=== PATIENT | female | born 1955 | race Caucasian/White ===

== ENCOUNTER 2018-02-03 02:58 | Inpatient (IN) | payer OTHER ==
--- NOTE | 2018-02-03 03:06 | C.PDOC ---
History Of Present Illness 62 year old female presents to the ER with a complaint of upper abdominal pain that began this morning when she woke up. Patient states the pain is nonradiating and not associated with chest pain, SOB, nausea, vomiting, diarrhea , dysuria, fever. She admits to having had mild similar pain in the past, but today the pain was much stronger. PMHx of HTN, arthritis,migraines Time Seen by Provider: 02/03/18 02:59 Chief Complaint (Nursing): Abdominal Pain History Per: Patient History/Exam Limitations: no limitations Onset/Duration Of Symptoms: Hrs Current Symptoms Are (Timing): Still Present Severity: Moderate Location Of Pain/Discomfort: RUQ, Epigastric Radiation Of Pain To:: None Quality Of Discomfort: "Pain" Associated Symptoms: denies: Fever, Chills, Nausea, Vomiting, Diarrhea, Urinary Symptoms Exacerbating Factors: None Alleviating Factors: None Recent travel outside of the [place]: No Abnormal Vaginal Bleeding: No Past Medical History Reviewed: Historical Data, Nursing Documentation, Vital Signs Vital Signs: Last Vital Signs Temp 98 F 02/03/18 03:02 Pulse 76 02/03/18 03:02 Resp 22 02/03/18 03:02 BP 158/94 H 02/03/18 03:02 Pulse Ox 99 02/03/18 06:54 - Medical History PMH: Arthritis, HTN, Migraine Family History: States: No Known Family Hx - Social History Hx Tobacco Use: No Hx Alcohol Use: No Hx Substance Use: No - Immunization History Hx Tetanus Toxoid Vaccination: Yes Hx Influenza Vaccination: Yes Hx Pneumococcal Vaccination: Yes Review Of Systems Constitutional: Negative for: Fever, Chills Cardiovascular: Negative for: Chest Pain, Palpitations Respiratory: Negative for: Shortness of Breath Gastrointestinal: Positive for: Abdominal Pain. Negative for: Nausea, Vomiting , Diarrhea Genitourinary: Negative for: Dysuria, Hematuria Physical Exam - Physical Exam Appears: Well, Non-toxic, Other (in moderate pain) Skin: Normal Color, Warm, Dry Head: Normacephalic Eye(s): bilateral: Normal Inspection Oral Mucosa: Moist Neck: Normal, Supple Cardiovascular: Rhythm Regular Respiratory: Normal Breath Sounds, No Rales, No Rhonchi, No Wheezing Gastrointestinal/Abdominal: Bowel Sounds, Soft, Tenderness ((+) Novak's, (+) Epigastric and RUQ TTP, (-) McBurney's), No Guarding, No Rebound Back: No CVA Tenderness Neurological/Psych: Oriented x3 ED Course And Treatment - Laboratory Results Result Diagrams: 02/03/18 04:16 02/03/18 04:16 O2 Sat by Pulse Oximetry: 99 (RA) Pulse Ox Interpretation: Normal - CT Scan/US ABD US Other Rad Studies (CT/US): Read By Radiologist, Radiology Report Reviewed CT/US Interpretation: Name: LAY CLARKE Age: 62Years F Date: 02/03/2018. Requesting Physician: GLORIA SAMS : 1955. [facility] Procedure Ordered As Accession Number of Images. US ABDOMEN LTD US ABDOMEN LIMITED [id number]. Provided Clinical History: ruq abd pain, r/o cholecystitis. EXAM: US Abdomen Limited, Right Upper Quadrant. CLINICAL HISTORY: 62 years old, female; Pain; Abdominal pain; Additional info: Ruq abd pain, R/O cholecystitis. TECHNIQUE: Real-time ultrasound of the right upper quadrant with image documentation. COMPARISON: No relevant prior studies available. FINDINGS: Artifacts: Limited due to bowel gas shadowing. Limited due to patient's body habitus and pain. Limited due to shadowing from the ribs. Liver: Limited evaluation of liver due to shadowing. Gallbladder: There is 1.7 x 1.1 x 1.6 cm gallstone in the gallbladder neck with 3 mm gallbladder wall. suspicious for acute obstructive cholecystitis is clinically suspected.There was right upper quadrant. tenderness during the sonographic examination. Common bile duct: Normal common bile duct measuring 6 mm for patient's age. No stones. No. dilation. Pancreas: The pancreas is not well- seen. Echogenic pancreas. Right kidney: Unremarkable. No stones. No solid mass. No hydronephrosis. Aorta: The visualized portions of the aorta appears unremarkable. Inferior vena cava: IVC seen. IMPRESSION: 1. There is 1.7 x 1.1 x 1.6 cm gallstone in the gallbladder neck with 3 mm gallbladder wall. suspicious for acute obstructive cholecystitis is clinically suspected.There was right upper. quadrant tenderness during the sonographic examination. 2. Normal common bile duct measuring 6 mm for patient's age. Thank you for allowing us to participate in the care of your patient. Dictated and Authenticated by: Alyec Burrell MD Progress Note: Blood work, UA, US of RUQ ordered. Patient given IV NS bolus, IV morphine. 6:35am- compensation vice president paged to discuss patient with acute cholcystitis. Surgical consult Dr. Noguera entered. Patient currently resting more comfortably, pain has improved. 6:45am- compensation vice president paged again, pending call back. 6:56am- Surgery resident spoken with, they will come down and evaluate patient. Reevaluation Time: 05:30 Reassessment Condition: Unchanged (Patient c/o severe pain again, IV morphine ordered.) Disposition - Disposition Disposition Time: 07:00 Condition: STABLE Forms: [facility] ([place]ian) - Clinical Impression Clinical Impression: Acute cholecystitis - Scribe Statement The provider has reviewed the documentation as recorded by the Scribe Miguel Sinha All medical record entries made by the Scribe were at my direction and personally dictated by me. I have reviewed the chart and agree that the record accurately reflects my personal performance of the history, physical exam, medical decision making, and the department course for this patient. I have also personally directed, reviewed, and agree with the discharge instructions and disposition. Physician Patient Turnover Patient Signed Over To: Caitlin Martin Handoff Comments: evaluation by general surgery
[2018-02-03] MEDS ORDERED: Sodium Chloride 0.9% 1,000 ML IV ONE (03:21)
[2018-02-03] MEDS ORDERED: Morphine 4 MG/ML VIAL ONE ×2 (03:46→05:39)
[2018-02-03] MEDS ORDERED: Sodium Chloride 0.9% 1,000 ML ONE (03:46)
[2018-02-03 04:22] LABS: BASO # 0.2 K/uL (0.0-0.2); BASO % 2.5 % (0.0-2.0); EOS # 0.1 K/uL (0.0-0.7); EOS % 1.1 % (0.0-4.0); HEMOGLOBIN 13.5 g/dL (11.0-16.0); MEAN CELL VOLUME 85.4 fL (81.0-99.0); MEAN CORPUSCULAR HEMOGLOBIN 27.7 pg (27.0-31.0); MEAN CORPUSCULAR HGB CONC 32.4 g/dL (33.0-37.0); MEAN PLATELET VOLUME 10.5 fL (7.2-11.7); MONO # 0.3 K/uL (0.0-0.8); MONO % 4.4 % (0.0-10.0); NEUT # 6.2 K/uL (1.8-7.0); RBC 4.87 Mil/uL (3.80-5.20); RED CELL DISTRIBUTION WIDTH 14.8 % (11.5-14.5); WHITE BLOOD COUNT 7.9 K/uL (4.8-10.8)
[2018-02-03 04:44] LABS: ALB/GLOB RATIO 1.4 (1.0-2.1); ALBUMIN 4.3 g/dL (3.5-5.0); ALT/SGPT 23 U/L (9-52); AST/SGOT 21 U/L (14-36); BLOOD UREA NITROGEN 15 mg/dL (7-17); CALCIUM 9.4 mg/dl (8.6-10.4); GFR AFRICAN-AMERICAN > 60; GFR NON-AFRICAN AMERICAN > 60; LIPASE 192 U/L (23-300)
[2018-02-03] MEDS ORDERED: Piperacillin/Tazobact 3.375 gm 100 ML IV STA (06:59)
[2018-02-03 08:21] LABS: SQUAMOUS EPITHIAL < 1 /hpf (0-5); URINE BILIRUBIN NEGATIVE (NEGATIVE); URINE CLARITY Clear (Clear); URINE COLOR Yellow (YELLOW); URINE GLUCOSE (UA) NORMAL (Normal); URINE LEUKOCYTE ESTERASE TRACE Leu/uL (Negative); URINE PROTEIN NEGATIVE (NEGATIVE); URINE UROBILINOGEN NORMAL mg/dL (0.2-1.0)
[2018-02-03 08:22] LABS: URINE BLOOD TRACE (NEGATIVE)
--- NOTE | 2018-02-03 09:44 | CP.PCM.HP ---
<Rosenda Mo - Last Filed: 02/03/18 15:59> History of Present Illness - History of Present Illness History of Present Illness: History and Physical - Hospitalist Service CC: "Abdominal Pain" HPI: Patient is a 62 year old female with past medical history Hypertension, sleep apnea on CPAP at night, obesity presented to the ED for severe abdominal pain. Patient's daughter is at the bedside providing some of the history. Patient states that she has been having intermittent abdominal pain that started 2-3 weeks ago. Last night after dinner she started experiencing severe abdominal pain in the RUQ. Pain started at approximately 8-9pm and is constant in nature. She took tylenol with no relief in symptoms. For dinner, she ate rice with baked chicken at approximately 7:30pm last night. Patient still with abdominal pain at the time of interview. Denies fevers, chills, headaches, dizziness, cp, palpitations, sob, urinary symptoms, changes in bowel habits. Patient follows closely with her machine burrer. States that her last echo and stress test were in September 2017, which were normal. Patient last took her medications yesterday. ED Course: Morphine 4mg IVP x 2 doses, Zosyn 3.375mg IVPB x 1, NS bolus x 1 PMD: Dr Fernanedz Cardiology: Dr Tha Benito Allergies: Penicillin - anaphylaxis Medications: Lisinopril-HCTZ 20mg/25mg PO daily, ASA 81mg PO daily Medical History: Hypertension, Varicose Veins, Obesity Surgical History: C section x 2, Broncoscopy in 2009 for chicken bone removal Social History: Denies tobacco, alcohol, drug use; lives with her ; independent with ADLs Family History: Non-contributory Present on Admission - Present on Admission Any Indicators Present on Admission: No Past Patient History - Past Social History Smoking Status: Never Smoked - CARDIAC Hx Hypertension: Yes - NEUROLOGICAL Hx Migraine: Yes - MUSCULOSKELETAL/RHEUMATOLOGICAL Hx Arthritis: Yes - PSYCHIATRIC Hx Substance Use: No - SURGICAL HISTORY Hx Section: Yes Meds Allergies/Adverse Reactions: Allergies Allergy/AdvReac Type Severity Reaction Status Date / Time Penicillins Allergy ANAPHYLAXIS Verified 02/03/18 10:31 Physical Exam - Constitutional Appears: Well, Non-toxic, No Acute Distress - Head Exam Head Exam: ATRAUMATIC, NORMAL INSPECTION, NORMOCEPHALIC - Eye Exam Eye Exam: EOMI, Normal appearance Pupil Exam: NORMAL ACCOMODATION - ENT Exam ENT Exam: Mucous Membranes Moist - Neck Exam Neck exam: Positive for: Full Rom - Respiratory Exam Respiratory Exam: Clear to Auscultation Bilateral, NORMAL BREATHING PATTERN. absent: Rales, Rhonchi, Wheezes - Cardiovascular Exam Cardiovascular Exam: REGULAR RHYTHM, +S1, +S2 - GI/Abdominal Exam GI & Abdominal Exam: Normal Bowel Sounds, Soft, Tenderness. absent: Guarding, Rebound, Rigid Additional comments: +Novak's on exam - Rectal Exam Rectal Exam: Deferred - Extremities Exam Extremities exam: Positive for: full ROM, normal capillary refill, pedal pulses present. Negative for: calf tenderness, pedal edema Additional comments: +varicose veins, +pedal pulses bilaterally, no calf tenderness, +varicose veins - Back Exam Back exam: NORMAL INSPECTION - Neurological Exam Neurological exam: Alert, CN II-XII Intact, Oriented x3 - Psychiatric Exam Psychiatric exam: Normal Affect, Normal Mood - Skin Skin Exam: Dry, Normal Color, Warm Results - Vital Signs Recent Vital Signs: Last Vital Signs Temp 98.9 F 02/03/18 07:00 Pulse 78 02/03/18 07:00 Resp 18 02/03/18 07:00 BP 141/69 02/03/18 07:00 Pulse Ox 97 02/03/18 07:00 - Labs Result Diagrams: 02/03/18 04:16 02/03/18 04:16 Labs: Laboratory Results - last 24 hr 02/03/18 02/03/18 02/03/18 04:16 04:16 07:48 WBC 7.9 RBC 4.87 Hgb 13.5 Hct 41.6 MCV 85.4 D MCH 27.7 MCHC 32.4 L RDW 14.8 H Plt Count 162 MPV 10.5 Neut % (Auto) 79.0 H Lymph % (Auto) 13.0 L [place] % (Auto) 4.4 Eos % (Auto) 1.1 Baso % (Auto) 2.5 H Neut # (Auto) 6.2 Lymph # (Auto) 1.0 [place] # (Auto) 0.3 Eos # (Auto) 0.1 Baso # (Auto) 0.2 Sodium 139 Potassium 3.9 Chloride 100 Carbon Dioxide 26 Anion Gap 17 BUN 15 Creatinine 0.9 Est GFR ( Amer) > 60 Est GFR (Non-Af Amer) > 60 Random Glucose 125 H Calcium 9.4 Total Bilirubin 0.6 AST 21 ALT 23 Alkaline Phosphatase 109 Total Protein 7.3 Albumin 4.3 Globulin 3.0 Albumin/Globulin Ratio 1.4 Lipase 192 Urine Color Yellow Urine Clarity Clear Urine pH 5.0 Ur Specific [place] 1.021 Urine Protein Negative Urine Glucose (UA) Normal Urine Ketones Negative Urine Blood Trace Urine Nitrate Negative Urine Bilirubin Negative Urine Urobilinogen Normal Ur Leukocyte Esterase Trace Urine WBC (Auto) 4 Urine RBC (Auto) < 1 Ur Squamous Epith Cells < 1 Assessment & Plan - Assessment and Plan (Free Text) Assessment: A/P: Patient is a 62 year old female with past medical history of Hypertension, Sleep apnea, Obesity who presented to the ED for severe RUQ pain that started last night. Abdominal pain secondary to Acute Cholecystitis -Stable, afebrile -Will admit inpatient -Abdominal US showed there is 1.7 x 1.1 x 1.6 cm gallstone in the gallbladder neck with 3 mm gallbladder wall, suspicious for acute obstructive cholecystitis , there was right upper quadrant tenderness during the sonographic examination, Normal common bile duct measuring 6mm for patient's age -Antibiotics: Ciprofloxacin 400mg Q12H, Flagyl 500mg Q8H -Patient reports having Penicillin allergy after receiving Zosyn in the ED, Benadryl 25mg IVP, Solumedrol 40mg IVP and Pepcid 20mg IVP ordered -General surgery on consult, help appreciated -Patient had echo and stress test in September 2017 that was reportedly normal per the daughter -Dr Benito office is closed today, unable to access reports -Repeat Echo ordered -Started Lactated ringers @ 80cc/hr -Zofran 4mg Q6H IVP prn nausea, Morphine 2mg Q4H prn pain -CXR: poor inspiratory effort, mild venous congestion, right hilar prominence, tortuous ectatic aorta (see full report) -Repeat CXR showed Mild venous congestion, mild pathcy increased markings at lung bases, right hilar prominence, tortuous ectatic aorta, mild cardiomegaly ( see full report) -EKG showing NSR 62 bpm, no ST changes -Patient is a medium risk individual with her comoborbities; cardiac risk index for non-cardiac surgery is Class I 6% (Detsky score) and estimated risk probability for perioperative myocardial infarction or cardiac arrest is 0.13% ( Sanchez score) Hypertension -Patient states that she is complaint with her medications and her BPs are controlled -Takes Lisinopril/HCTZ 20-25mg PO daily -Will hold Aspirin 81mg PO daily at this time, can resume 3-4 days post op -Currently normatensive, will continue to monitor vital signs Sleep apnea/Obesity -Patient has had two sleep studies done in the past -Sleeps with CPAP at night, daughter to provide settings -Duonebs Q6H prn shortness of breath -Will obtain baseline ABG -BMI 46.9 GI/DVT ppx: -Pepcid 20mg IVP daily -SCDs (Will add chemical VTE after surgery) Plan discussed with Dr Mary Carmen Mo DO PGY-2 <Mary Carmen Lucia V - Last Filed: 02/03/18 19:22> Physical Exam - Constitutional Appears: Non-toxic, No Acute Distress Additional comments: morbidly obese - Head Exam Head Exam: NORMAL INSPECTION - ENT Exam ENT Exam: Mucous Membranes Moist - Neck Exam Neck exam: Positive for: Full Rom - Respiratory Exam Respiratory Exam: absent: Respiratory Distress, Stridor - Extremities Exam Additional comments: obese habitus nonpitting lymphedema multiple varcosities Results - Vital Signs Recent Vital Signs: Last Vital Signs Temp 98.9 F 02/03/18 07:00 Pulse 82 02/03/18 09:45 Resp 18 02/03/18 09:45 BP 130/85 02/03/18 09:45 Pulse Ox 100 02/03/18 09:45 - Labs Result Diagrams: 02/03/18 04:16 02/03/18 04:16 Labs: Laboratory Results - last 24 hr 02/03/18 02/03/18 02/03/18 04:16 04:16 07:48 WBC 7.9 RBC 4.87 Hgb 13.5 Hct 41.6 MCV 85.4 D MCH 27.7 MCHC 32.4 L RDW 14.8 H Plt Count 162 MPV 10.5 Neut % (Auto) 79.0 H Lymph % (Auto) 13.0 L [place] % (Auto) 4.4 Eos % (Auto) 1.1 Baso % (Auto) 2.5 H Neut # (Auto) 6.2 Lymph # (Auto) 1.0 [place] # (Auto) 0.3 Eos # (Auto) 0.1 Baso # (Auto) 0.2 PT INR APTT Sodium 139 Potassium 3.9 Chloride 100 Carbon Dioxide 26 Anion Gap 17 BUN 15 Creatinine 0.9 Est GFR ( Amer) > 60 Est GFR (Non-Af Amer) > 60 Random Glucose 125 H Calcium 9.4 Total Bilirubin 0.6 AST 21 ALT 23 Alkaline Phosphatase 109 Total Protein 7.3 Albumin 4.3 Globulin 3.0 Albumin/Globulin Ratio 1.4 Lipase 192 Urine Color Yellow Urine Clarity Clear Urine pH 5.0 Ur Specific [place] 1.021 Urine Protein Negative Urine Glucose (UA) Normal Urine Ketones Negative Urine Blood Trace Urine Nitrate Negative Urine Bilirubin Negative Urine Urobilinogen Normal Ur Leukocyte Esterase Trace Urine WBC (Auto) 4 Urine RBC (Auto) < 1 Ur Squamous Epith Cells < 1 Blood Type Antibody Screen 02/03/18 02/03/18 09:45 09:45 WBC RBC Hgb Hct MCV MCH MCHC RDW Plt Count MPV Neut % (Auto) Lymph % (Auto) [place] % (Auto) Eos % (Auto) Baso % (Auto) Neut # (Auto) Lymph # (Auto) [place] # (Auto) Eos # (Auto) Baso # (Auto) PT 11.1 INR 1.0 APTT 31 Sodium Potassium Chloride Carbon Dioxide Anion Gap BUN Creatinine Est GFR ( Amer) Est GFR (Non-Af Amer) Random Glucose Calcium Total Bilirubin AST ALT Alkaline Phosphatase Total Protein Albumin Globulin Albumin/Globulin Ratio Lipase Urine Color Urine Clarity Urine pH Ur Specific [place] Urine Protein Urine Glucose (UA) Urine Ketones Urine Blood Urine Nitrate Urine Bilirubin Urine Urobilinogen Ur Leukocyte Esterase Urine WBC (Auto) Urine RBC (Auto) Ur Squamous Epith Cells Blood Type O POSITIVE Antibody Screen Negative - EKG Data EKG Interpreted by: Myself EKG shows normal: Sinus rhythm Attending/Attestation - Attestation I have personally seen and examined this patient.: Yes I have fully participated in the care of the patient.: Yes I have reviewed all pertinent clinical information: Yes Notes (Text): 62 year old Female PMHx morbid obesity, hypertension, biliary cholic, and obstructive sleep apnea. patient reports prior history of abdominal pain episodes over the right upper quadrant but acute had episode last night following dinner, which cause tremendous pain and made her daughter quite uncomfortable at bedside. Patient seen in the ED, patient had received dose of Zosyn in the AM prior to my arrival, patient reports allergy to PCN about 30 years ago which cause the face to swell. Patient order for dose of Solumedrol 40mg IV X1, Benadryl 25mg IVX1, and Pepcid 20mg IVX1. patient does not report any allergic reaction, no throat swelling, no shortness of breathe following the Zosyn. We have updated the EMR. Patient has had extensive cardiac workup with her machine burrer, Dr. Tha Baez including echocardiogram and stress test in september of this past year which daughter at bedside reported it was fine. Resident has attempted to call machine burrer's office but they are not open because the weekend. Patient's EKG in the ER shows normal sinus rhythm. Patient last took her anti-hypertensive yesterday morning. Patient also has been taking aspirin as cardioprotectant agent as well. patient has also had a sleep study in the past by her machine burrer, and wears a CPAP either 5/6 setting at night which she is compliant on. Patient's portable chest xray appears abnormal. PA and Lateral chest xray completed. PA and Lateral noted for mild venous congestion, mild patchy increased markings at the lung bases; left greater than right, right hilar promineace. tortuous ectatic aorta. mild cardiomegaly. Patient is ordered for echocardiogram. patient has prior workup done however unable to gain access to these files and machine burrer office is not open. Assessment/Plan 1) Symptomatic Biliary Colic Acute Cholecystitis Asssessment/Plan * Stable, afebrile * Admit to general medical floor * Abdominal US showed there is 1.7 x 1.1 x 1.6 cm gallstone in the gallbladder neck with 3 mm gallbladder wall, suspicious for acute obstructive cholecystitis , there was right upper quadrant tenderness during the sonographic examination, Normal common bile duct measuring 6mm for patient's age * Antibiotics: Ciprofloxacin 400mg Q12H, Flagyl 500mg Q8H * Patient reports having Penicillin allergy in the past. She has received Zosyn in the ED prior to our arrival-->we ordered Benadryl 25mg IVP, Solumedrol 40mg IVP and Pepcid 20mg IVP order. * General surgery on consult, help appreciated * Patient had echo and stress test in September 2017 that was reportedly normal per the daughter * Resident has attempted to call Dr Benito office is closed today, unable to access reports * Repeat Echo ordered * Lactated ringers @ 80cc/hr * Zofran 4mg Q6H IVP prn nausea * Morphine 2mg Q4H prn pain * CXR: poor inspiratory effort, mild venous congestion, right hilar prominence, tortuous ectatic aorta (see full report) * Repeat CXR showed Mild venous congestion, mild pathcy increased markings at lung bases, right hilar prominence, tortuous ectatic aorta, mild cardiomegaly ( see full report) * EKG showing NSR 62 bpm, no ST changes * Patient is a medium risk individual with her co-moborbities; cardiac risk index for non-cardiac surgery is Class I 6% (Detsky score) and estimated risk probability for perioperative myocardial infarction or cardiac arrest is 0.13% ( Sanchez score). Blood pressure controlled on medications. Patient uses CPAP at night for her obstructive sleep apena. 2) Hypertension Assessment/Plan * Patient states that she is complaint with her medications and her BPs are controlled * Takes Lisinopril/HCTZ 20-25mg PO daily * Will hold Aspirin 81mg PO daily at this time, can resume 3-4 days post op * Currently normatensive, will continue to monitor vital signs 3) History of Sleep apnea Morbid Obesity Assessment/Plan * Patient has completed sleep study with her machine burrer in the past; she does not followup with lung doctor * -Sleeps with CPAP at night, daughter to provide settings * Duonebs Q6H prn shortness of breath * Baseline ABG order * Patient will need aggressive lifestyle modifications and exercise since she is morbidly obese 4) Possible Allergic Reaction * Patient given Zosyn in the ED. * Patient given Solumedrol 40mg IVX1, Pepcid 20mg IVX1, and Benadryl 25mg IV X1 * Monitor 5) GI/DVT ppx: * Pepcid 20mg IVP daily * SCDs * Hold Chemical anticoagulation for possible surgery intervention
[2018-02-03] MEDS ORDERED: Piperacill/Tazo 3.375gm in Dex 3.375 GM/50 ML BAG IVPB SCH (09:45)
[2018-02-03] MEDS ORDERED: Piperacillin/Tazobact 3.375 gm 100 ML IVPB ONE (10:19)
[2018-02-03 10:22] LABS: PROTHROMBIN TIME 11.1 SECONDS (9.7-12.2)
[2018-02-03] MEDS ORDERED: DiphenhydrAMINE 50 mg/ml Inj IVP STA (10:42)
[2018-02-03] MEDS ORDERED: Albuterol-Ipratrop 3 mg / 0.5 (3 ml) UD INH PRN (10:42)
[2018-02-03] MEDS ORDERED: MethylPREDNISolone 40 mg Vial IVP STA (10:42)
--- NOTE | 2018-02-03 10:49 | RAD ---
Chest x-ray single frontal view History: Shortness of breath Comparison: None available. Findings: Mild venous congestion. Right hilar prominence. Tortuous ectatic aorta. Top normal heart size. Degenerative changes in the spine and shoulders. Impression: Mild venous congestion. Right hilar prominence. Tortuous ectatic aorta. Top normal heart size.
[2018-02-03 10:53] LABS: HDL CHOLESTEROL 52 mg/dL (30-70)
--- NOTE | 2018-02-03 11:01 | RAD ---
Chest x-ray two views History: Abnormal chest x-ray. Comparison: 02/03/2018 Findings: Mild venous congestion. Mild patchy increased markings at the lung bases ; left greater than right. Right hilar prominence. Tortuous ectatic aorta. Mild cardiomegaly. Degenerative changes in the spine. Impression: Mild venous congestion. Mild patchy increased markings at the lung bases ; left greater than right. Right hilar prominence. Tortuous ectatic aorta. Mild cardiomegaly.
[2018-02-03 11:04] LABS: LDL CHOLESTEROL 106 mg/dL (0-129)
[2018-02-03] MEDS ORDERED: Lactated Ringer's 1,000 ML IV SCH (11:30)
--- NOTE | 2018-02-03 11:37 | US ---
Right upper quadrant abdominal ultrasound History: Right upper quadrant abdominal. Comparison: None available. Technique: Real-time sonography was performed through the right upper quadrant of the abdomen. Findings: Limited study secondary to bowel gas shadowing as well as patient body habitus and pain. Limited study due to shadowing from ribs. Liver: 15.2 centimeters in length. Increased echogenicity of the hepatic parenchymal cortex suggestive for fatty infiltration versus hepatic parenchymal disease. Clinical correlation. Gallbladder: Cholelithiasis with prominent calculus measuring up to 1.7 centimeters at the level of gallbladder neck. Top normal wall thickening measuring up to 3 millimeters. Positive sonographic Novak's sign. These findings may represent an underlying cholecystitis. Clinical correlation. Common bile duct measures 6 millimeters, grossly preserved. Pancreas not well visualized. Echogenic pancreas. Visualized portions of the aorta and IVC are grossly preserved. Impression: Limited study secondary to body habitus, bowel gas, and pain. 1.7 cm calculus at the gallbladder neck with associated mild prominence of the gallbladder wall thickness measuring up 3.2 millimeters. Positive sonographic Novak's sign. These findings may represent a cholecystitis. Clinical correlation. Additional findings as above. These findings were preliminarily reported at 6:30 a.m. on 02/03/[address] Alyce Burrell from [facility].
[2018-02-03 12:07] LABS: ABG ALLEN TEST POS; ARTERIAL BLOOD GAS HCO3 26.2 mmol/L (21-28); ARTERIAL BLOOD GAS HEMOGLOBIN 12.9 g/dL (11.7-17.4); ARTERIAL BLOOD GAS O2 SAT 96.8 % (95-98); ARTERIAL BLOOD GAS PCO2 45 mm/Hg (35-45); ARTERIAL BLOOD GAS PH 7.39 (7.35-7.45); ARTERIAL BLOOD GAS PO2 71 mm/Hg (80-100); ARTERIAL BLOOD GAS TCO2 28.6 mmol/L (22-28)
[2018-02-03] MEDS: Ciprofloxacin 400mg/200ml D5W 400 MG/200 ML BAG IVPB SCH ×2 (12:45→21:00)
--- NOTE | 2018-02-03 16:11 | CP.PCM.CON ---
<Elmer Melara - Last Filed: 02/03/18 17:59> History of Present Illness - History of Present Illness History of Present Illness: Consult note for Dr. Noguera 62F presenting to the ED for worsening epigastric pain. The pain started last night after she ate dinner at 8pm. The pain is constant and radiates to the back , rated as a 9/10 today. Nothing alleviates or exacerbates the pain. She received 2 doses of 2mg morphine in the ED that did not help. She denies any f/c , n/v/d. PMH: HTN, migraines PSH: ALL: penicillin Social: denies t/a/d Review of Systems - Constitutional Constitutional: absent: Fever, Headache, Night Sweats, Weight Loss - EENT Eyes: absent: Blurred Vision, Change in Vision, Dry Eye Nose/Mouth/Throat: absent: Nasal Congestion, Nasal Discharge - Cardiovascular Cardiovascular: absent: Chest Pain, Dyspnea - Respiratory Respiratory: absent: Cough, Dyspnea - Gastrointestinal Gastrointestinal: Abdominal Pain, Bloating. absent: Change in Bowel Habits, Constipation, Diarrhea, Nausea, Vomiting - Genitourinary Genitourinary: absent: Difficulty Urinating, Dysuria - Musculoskeletal Musculoskeletal: absent: Abnormal Gait, Arthralgias - Integumentary Integumentary: absent: Bleeding Lesions, Changing Lesions - Neurological Neurological: absent: Dizziness, Numbness, Headaches - Psychiatric Psychiatric: absent: Anxiety, Depression - Hematologic/Lymphatic Hematologic: absent: Easy Bleeding, Easy Bruising Past Patient History - Past Medical History & Family History Past Medical History?: Yes - Past Social History Smoking Status: Never Smoked - CARDIAC Hx Hypertension: Yes - PULMONARY Hx Respiratory Disorders: No - NEUROLOGICAL Hx Migraine: Yes - HEENT Hx HEENT Problems: No - RENAL Hx Chronic Kidney Disease: No - ENDOCRINE/METABOLIC Hx Endocrine Disorders: No - HEMATOLOGICAL/ONCOLOGICAL Hx Blood Disorders: No - INTEGUMENTARY Hx Dermatological Problems: No - MUSCULOSKELETAL/RHEUMATOLOGICAL Hx Arthritis: Yes - GASTROINTESTINAL Hx Gastrointestinal Disorders: Yes - GENITOURINARY/GYNECOLOGICAL Hx Genitourinary Disorders: No - PSYCHIATRIC Hx Substance Use: No - SURGICAL HISTORY Hx Section: Yes - ANESTHESIA Hx Anesthesia: Yes Hx Anesthesia Reactions: No Meds Allergies/Adverse Reactions: Allergies Allergy/AdvReac Type Severity Reaction Status Date / Time Penicillins Allergy ANAPHYLAXIS Verified 02/03/18 10:31 - Medications Medications: Current Medications Albuterol/Ipratropium (Duoneb 3 Mg/0.5 Mg (3 Ml) Ud) 3 ml INH RQ6 PRN PRN Reason: Shortness of Breath Famotidine (Pepcid) 20 mg IVP DAILY [facility] Last Admin: 02/03/18 10:45 Dose: 20 mg Ciprofloxacin (Cipro 400mg/200ml Dsw) 400 mg in 200 mls @ 133 mls/hr IVPB Q12 GARRETT PRN Reason: Protocol Last Admin: 02/03/18 12:45 Dose: 133 mls/hr Metronidazole (Flagyl) 500 mg in 100 mls @ 100 mls/hr IVPB Q8 GARRETT PRN Reason: Protocol Lactated Ringer's (Lactated Ringer's) 1,000 mls @ 50 mls/hr IV .Q20H GARRETT Morphine Sulfate (Morphine) 2 mg IVP Q4 PRN PRN Reason: Pain, moderate (4-7) Ondansetron HCl (Zofran Inj) 4 mg IVP Q6H PRN PRN Reason: Nausea/Vomiting Physical Exam - Constitutional Appears: Well, Non-toxic, No Acute Distress - Head Exam Head Exam: ATRAUMATIC, NORMAL INSPECTION, NORMOCEPHALIC - Eye Exam Eye Exam: EOMI, Normal appearance - ENT Exam ENT Exam: Mucous Membranes Moist, Normal Exam - Respiratory Exam Respiratory Exam: Accessory Muscle Use - Cardiovascular Exam Cardiovascular Exam: REGULAR RHYTHM, +S1, +S2 - GI/Abdominal Exam GI & Abdominal Exam: Distended, Normal Bowel Sounds, Soft, Tenderness. absent: Firm, Guarding, Rebound, Rigid - Rectal Exam Rectal Exam: Deferred - Neurological Exam Neurological exam: Alert, Oriented x3 - Psychiatric Exam Psychiatric exam: Normal Affect, Normal Mood - Skin Skin Exam: Dry, Intact, Normal Color, Warm Results - Vital Signs Recent Vital Signs: Last Vital Signs Temp 98.9 F 02/03/18 07:00 Pulse 82 02/03/18 09:45 Resp 18 02/03/18 09:45 BP 130/85 02/03/18 09:45 Pulse Ox 100 02/03/18 09:45 - Labs Result Diagrams: 02/03/18 04:16 02/03/18 04:16 Labs: Laboratory Results - last 24 hr 07/1402/03/18 02/03/18 04:16 04:16 07:48 WBC 7.9 RBC 4.87 Hgb 13.5 Hct 41.6 MCV 85.4 D MCH 27.7 MCHC 32.4 L RDW 14.8 H Plt Count 162 MPV 10.5 Neut % (Auto) 79.0 H Lymph % (Auto) 13.0 L [place] % (Auto) 4.4 Eos % (Auto) 1.1 Baso % (Auto) 2.5 H Neut # (Auto) 6.2 Lymph # (Auto) 1.0 [place] # (Auto) 0.3 Eos # (Auto) 0.1 Baso # (Auto) 0.2 PT INR APTT Puncture Site pCO2 pO2 HCO3 ABG pH ABG Total CO2 ABG O2 Saturation ABG Base Excess ABG Hemoglobin ABG Carboxyhemoglobin POC ABG HHb (Measured) ABG Methemoglobin Mann Test Hgb O2 Saturation Crit Value Called To Crit Value Called By Crit Value Read Back Sodium 139 Potassium 3.9 Chloride 100 Carbon Dioxide 26 Anion Gap 17 BUN 15 Creatinine 0.9 Est GFR ( Amer) > 60 Est GFR (Non-Af Amer) > 60 Random Glucose 125 H Calcium 9.4 Total Bilirubin 0.6 AST 21 ALT 23 Alkaline Phosphatase 109 Total Protein 7.3 Albumin 4.3 Globulin 3.0 Albumin/Globulin Ratio 1.4 Triglycerides 75 Cholesterol 195 LDL Cholesterol Direct 106 HDL Cholesterol 52 Lipase 192 Urine Color Yellow Urine Clarity Clear Urine pH 5.0 Ur Specific [place] 1.021 Urine Protein Negative Urine Glucose (UA) Normal Urine Ketones Negative Urine Blood Trace Urine Nitrate Negative Urine Bilirubin Negative Urine Urobilinogen Normal Ur Leukocyte Esterase Trace Urine WBC (Auto) 4 Urine RBC (Auto) < 1 Ur Squamous Epith Cells < 1 Blood Type Antibody Screen 02/03/18 02/03/18 02/03/18 09:45 09:45 11:55 WBC RBC Hgb Hct MCV MCH MCHC RDW Plt Count MPV Neut % (Auto) Lymph % (Auto) [place] % (Auto) Eos % (Auto) Baso % (Auto) Neut # (Auto) Lymph # (Auto) [place] # (Auto) Eos # (Auto) Baso # (Auto) PT 11.1 INR 1.0 APTT 31 Puncture Site L/b pCO2 45 pO2 71 L HCO3 26.2 ABG pH 7.39 ABG Total CO2 28.6 H ABG O2 Saturation 96.8 ABG Base Excess 1.8 ABG Hemoglobin 12.9 ABG Carboxyhemoglobin 2.1 H POC ABG HHb (Measured) 3.1 ABG Methemoglobin 1.7 Mann Test Pos Hgb O2 Saturation 93.1 L Crit Value Called To Pravin gibbs Crit Value Called By Jeanette Crit Value Read Back Y Sodium Potassium Chloride Carbon Dioxide Anion Gap BUN Creatinine Est GFR ( Amer) Est GFR (Non-Af Amer) Random Glucose Calcium Total Bilirubin AST ALT Alkaline Phosphatase Total Protein Albumin Globulin Albumin/Globulin Ratio Triglycerides Cholesterol LDL Cholesterol Direct HDL Cholesterol Lipase Urine Color Urine Clarity Urine pH Ur Specific [place] Urine Protein Urine Glucose (UA) Urine Ketones Urine Blood Urine Nitrate Urine Bilirubin Urine Urobilinogen Ur Leukocyte Esterase Urine WBC (Auto) Urine RBC (Auto) Ur Squamous Epith Cells Blood Type O POSITIVE Antibody Screen Negative Assessment & Plan - Assessment and Plan (Free Text) Assessment: 62F w/ acute cholecystitis Plan: US: positive short sign, 1.7cm stone in gallbladder neck, wall thickening NPO, IVF pain management zofran for nausea continue IV Abx OR today for laparascopic cholecystectomy, possible open further recs per Dr. Poornima Melara PGY1 <Fredy Noguera - Last Filed: 02/03/18 23:19> Meds - Medications Medications: Current Medications Albuterol/Ipratropium (Duoneb 3 Mg/0.5 Mg (3 Ml) Ud) 3 ml INH RQ6 PRN PRN Reason: Shortness of Breath Famotidine (Pepcid) 20 mg IVP DAILY [facility] Last Admin: 02/03/18 10:45 Dose: 20 mg Hydrochlorothiazide (Hydrodiuril) 25 mg PO DAILY [facility] Ciprofloxacin (Cipro 400mg/200ml Dsw) 400 mg in 200 mls @ 133 mls/hr IVPB Q12 GARRETT PRN Reason: Protocol Last Admin: 02/03/18 21:00 Dose: 133 mls/hr Metronidazole (Flagyl) 500 mg in 100 mls @ 100 mls/hr IVPB Q8 GARRETT PRN Reason: Protocol Last Admin: 02/03/18 21:06 Dose: 100 mls/hr Lactated Ringer's (Lactated Ringer's) 1,000 mls @ 50 mls/hr IV .Q20H GARRETT Stop: 02/04/18 00:01 Last Admin: 02/03/18 21:11 Dose: 50 mls/hr Lisinopril (Zestril) 20 mg PO DAILY [facility] Morphine Sulfate (Morphine) 2 mg IVP Q4 PRN PRN Reason: Pain, moderate (4-7) Ondansetron HCl (Zofran Inj) 4 mg IVP Q6H PRN PRN Reason: Nausea/Vomiting Results - Vital Signs Recent Vital Signs: Last Vital Signs Temp 97.8 F 02/03/18 19:20 Pulse 74 02/03/18 19:20 Resp 20 02/03/18 19:20 BP 131/75 02/03/18 19:20 Pulse Ox 100 02/03/18 19:20 - Labs Result Diagrams: 02/03/18 04:16 02/03/18 04:16 Labs: Laboratory Results - last 24 hr 02/03/18 02/03/18 02/03/18 04:16 04:16 07:48 WBC 7.9 RBC 4.87 Hgb 13.5 Hct 41.6 MCV 85.4 D MCH 27.7 MCHC 32.4 L RDW 14.8 H Plt Count 162 MPV 10.5 Neut % (Auto) 79.0 H Lymph % (Auto) 13.0 L [place] % (Auto) 4.4 Eos % (Auto) 1.1 Baso % (Auto) 2.5 H Neut # (Auto) 6.2 Lymph # (Auto) 1.0 [place] # (Auto) 0.3 Eos # (Auto) 0.1 Baso # (Auto) 0.2 PT INR APTT Puncture Site pCO2 pO2 HCO3 ABG pH ABG Total CO2 ABG O2 Saturation ABG Base Excess ABG Hemoglobin ABG Carboxyhemoglobin POC ABG HHb (Measured) ABG Methemoglobin Mann Test Hgb O2 Saturation Crit Value Called To Crit Value Called By Crit Value Read Back Sodium 139 Potassium 3.9 Chloride 100 Carbon Dioxide 26 Anion Gap 17 BUN 15 Creatinine 0.9 Est GFR ( Amer) > 60 Est GFR (Non-Af Amer) > 60 Random Glucose 125 H Calcium 9.4 Total Bilirubin 0.6 AST 21 ALT 23 Alkaline Phosphatase 109 Total Protein 7.3 Albumin 4.3 Globulin 3.0 Albumin/Globulin Ratio 1.4 Triglycerides 75 Cholesterol 195 LDL Cholesterol Direct 106 HDL Cholesterol 52 Lipase 192 Urine Color Yellow Urine Clarity Clear Urine pH 5.0 Ur Specific [place] 1.021 Urine Protein Negative Urine Glucose (UA) Normal Urine Ketones Negative Urine Blood Trace Urine Nitrate Negative Urine Bilirubin Negative Urine Urobilinogen Normal Ur Leukocyte Esterase Trace Urine WBC (Auto) 4 Urine RBC (Auto) < 1 Ur Squamous Epith Cells < 1 Blood Type Antibody Screen 02/03/18 02/03/18 02/03/18 09:45 09:45 11:55 WBC RBC Hgb Hct MCV MCH MCHC RDW Plt Count MPV Neut % (Auto) Lymph % (Auto) [place] % (Auto) Eos % (Auto) Baso % (Auto) Neut # (Auto) Lymph # (Auto) [place] # (Auto) Eos # (Auto) Baso # (Auto) PT 11.1 INR 1.0 APTT 31 Puncture Site L/b pCO2 45 pO2 71 L HCO3 26.2 ABG pH 7.39 ABG Total CO2 28.6 H ABG O2 Saturation 96.8 ABG Base Excess 1.8 ABG Hemoglobin 12.9 ABG Carboxyhemoglobin 2.1 H POC ABG HHb (Measured) 3.1 ABG Methemoglobin 1.7 Mann Test Pos Hgb O2 Saturation 93.1 L Crit Value Called To Pravin gibbs Crit Value Called By Jeanette Crit Value Read Back Y Sodium Potassium Chloride Carbon Dioxide Anion Gap BUN Creatinine Est GFR ( Amer) Est GFR (Non-Af Amer) Random Glucose Calcium Total Bilirubin AST ALT Alkaline Phosphatase Total Protein Albumin Globulin Albumin/Globulin Ratio Triglycerides Cholesterol LDL Cholesterol Direct HDL Cholesterol Lipase Urine Color Urine Clarity Urine pH Ur Specific [place] Urine Protein Urine Glucose (UA) Urine Ketones Urine Blood Urine Nitrate Urine Bilirubin Urine Urobilinogen Ur Leukocyte Esterase Urine WBC (Auto) Urine RBC (Auto) Ur Squamous Epith Cells Blood Type O POSITIVE Antibody Screen Negative Attending/Attestation - Attestation I have personally seen and examined this patient.: Yes I have fully participated in the care of the patient.: Yes I have reviewed all pertinent clinical information: Yes Notes (Text): Pt was seen and examined at bedside Agree with above note and assessment Pt with RUQ pain and tenderness Labs and radiology reviewed Ass: Acute Cholecystitis with Cholelithiasis Plan : Lap Cholecystectomy Consent EKG, CXR NPO, IVF IV Antibiotics Plan d.w pt in detail. Risk and benefit explained in detail.
[2018-02-03] MEDS ORDERED: Propofol 10 mg/ml Inj (20 ML) ONE (16:13)
[2018-02-03] MEDS ORDERED: Midazolam 2 MG/2 ML VIAL ONE (16:13)
[2018-02-03] MEDS: metroNIDAZOLE IV 500 mg/100 ml 500 MG/100 ML BAG IVPB SCH ×2 (16:21→21:06)
[2018-02-03] MEDS ORDERED: Lidocaine/Epinephrine 1% 1:100000 10 ML IJ ONE (16:24)
[2018-02-03] MEDS: HYDROmorphone 0.5 mg/0.5 ml ISec IVP PRN ×4 (16:30→18:10)
[2018-02-03] MEDS ORDERED: Rocuronium 10 mg/ml (5 ml) ONE (16:33)
[2018-02-03] MEDS ORDERED: Succinylcholine Chloride 20 mg/ml Syr (5 ml) IV ONE (16:33)
[2018-02-03] MEDS ORDERED: Neostigmine Methylsulfate 3mg/3ml Syringe IV ONE (17:25)
--- NOTE | 2018-02-03 17:41 | PCM.SURG1 ---
Surgeon's Initial Post Op Note - Surgeon's Notes Surgeon: Dr. Noguera Elocution Teacher: Elmer Melara PGY1 Type of Anesthesia: General Endo, Local Pre-Operative Diagnosis: acute cholecystitis Operative Findings: see dictation note Post-Operative Diagnosis: same Operation Performed: laparascopic cholecystectomy Specimen/Specimens Removed: gallbladder Estimated Blood Loss: EBL {In ML}: 20 Blood Products Given: N/A Drains Used: No Drains Post-Op Condition: Good Date of Surgery/Procedure: 02/03/18 Time of Surgery/Procedure: 17:42
[2018-02-03 18:23] VITALS: O2SAT 100
[2018-02-03 19:21] VITALS: RESP 20
--- NOTE | 2018-02-03 20:57 | CP.PCM.PCO ---
Physician Communication Note - Physician Communication Note Physician Communication Note: Surgery to determine when to start anticoagulation post surgery
[2018-02-03] MEDS: Lactated Ringer's 1,000 ML IV SCH ×2 (21:08→21:11)
--- NOTE | 2018-02-04 04:19 | OP ---
PROCEDURE DATE: 02/03/2018 PREOPERATIVE DIAGNOSES: 1. Acute cholecystitis and cholelithiasis. 2. Morbid obesity. POSTOPERATIVE DIAGNOSES: 1. Acute cholecystitis and cholelithiasis. 2. Morbid obesity. PROCEDURE: Laparoscopic cholecystectomy. SURGEON: Fredy Noguera M.D. ASSISTANTS: JUDAH Mejia; and Fany, PGY-1 resident. TYPE OF ANESTHESIA: General endotracheal tube anesthesia. ESTIMATED BLOOD LOSS: Around 10 mL. DRAIN: None. PATHOLOGY: The gallbladder with a gallstone was sent for the pathology. COMPLICATIONS: None. INTRAOPERATIVE FINDINGS: The patient had changes of acute cholecystitis and cholelithiasis. DESCRIPTION OF PROCEDURE: On intraoperative steps, this is a 62-year-old female who was diagnosed with acute cholecystitis and cholelithiasis, and the patient was consented for laparoscopic cholecystectomy, possible open, brought to the OR, placed supine on the operating table. After induction of the anesthesia, the abdomen was prepped and draped in the usual sterile fashion. The supraumbilical transverse incision was made after incising the skin, subcutaneous tissue, and the fascia. The Milagros port was placed. Pneumo was created, another 12 mm port was placed in the midline below the costal margin and two 5 mm port was placed in the right upper quadrant. Grasper and dissector were introduced. Gallbladder was retracted cranially. Calot's triangle dissection was done. Cystic duct and cystic artery were identified and were clipped at three places and cut in between 2 clips nearby gallbladder, and gallbladder was dissected free from the gallbladder fossa. The critical view of the safety was identified. The top-down approach was done and the ductal anatomy was identified before clipping the cystic duct, and the gallbladder was taken in an EndoCatch bag, taken out through the umbilical port site, and sent off the table for pathology. There was proper hemostasis in each and every part of the procedure. Suction irrigation of the gallbladder fossa as well as the perihepatic area was done, and all the port was taken out under vision. Pneumo was deflated. Umbilical port site was closed in two layers, the fascia with 0 Vicryl interrupted suture, skin with 4-0 Monocryl, and dry sterile dressing was applied. The patient tolerated the procedure well. Count of instrument and gauze was correct. There were no apparent complications. The patient was extubated in the OR, sent to the postanesthesia care unit in stable condition. Fredy Noguera MD
[2018-02-04] MEDS: metroNIDAZOLE IV 500 mg/100 ml 500 MG/100 ML BAG IVPB SCH ×2 (05:07→14:55)
--- NOTE | 2018-02-04 06:41 | CP.PCM.CON ---
History of Present Illness - History of Present Illness History of Present Illness: Asked by hospitalist team for a GI consultation on this patient. 62 year old female with history of obesity, HTN who presents to hospital with complaint of acute abdominal pain which started last evening following dinner. She describes a sharp, 10/10 epigastric pain radiating to RUQ which became worse after meal consumption. She had experienced intermittent similar discomfort over the past 2 weeks but the pain episodes typically would resolve on their own. She denies nausea, vomiting, diarrhea, fever/chills, weight loss, or change in bowel habits. No prior endoscopic evaluation. Social history: no smoking, no ETOH use Family history: reviewed, no history of GI malignancies Review of Systems - Review of Systems Review of Systems: - All other comprehensive 12 point review of systems performed, negative - Cardiovascular Cardiovascular: absent: Acrocyanosis, Chest Pain, Chest Pain at Rest, Chest Pain with Activity, Claudication, Diaphoresis, Dyspnea, Dyspnea on Exertion, Edema, Irregular Heart Rhythm, Pain Radiating to Arm/Neck/Jaw, Leg Edema, Leg Ulcers, Lightheadedness, Orthopnea, Palpitations, Paroxysmal Nocturnal Dyspnea, Pedal Edema, Radiating Pain, Rapid Heart Rate, Slow Heart Rate, Syncope, Other - Respiratory Respiratory: absent: Cough, Dyspnea, Hemoptysis, Dyspnea on Exertion, Wheezing, Snoring, Stridor, Pain on Inspiration, Chest Congestion, Excessive Mucous Production, Change in Mucous Color, Pain with Coughing, Other - Gastrointestinal Gastrointestinal: Abdominal Pain - Musculoskeletal Musculoskeletal: absent: Abnormal Gait, Arthralgias, Atrophy, Back Pain, Deformity, Joint Swelling, Limited Range of Motion, Loss of Height, Muscle Cramps, Muscle Weakness, Myalgias, Neck Pain, Numbness, Radiating Pain into Limb , Stiffness, Tingling, Other - Neurological Neurological: absent: Abnormal Gait, Abnormal Hearing, Abnormal Movements, Abnormal Speech, Behavioral Changes, Burning Sensations, Confusion, Convulsions , Disequilibrium, Dizziness, Numbness, Focal Weakness, Frequent Falls, Headaches , Lack of Coordination, Loss of Vision, Memory Loss, Paresthesias, Radicular Pain, Restless Legs, Sensory Deficit, Syncope, Tingling, Tremor, Vertigo, Weakness, Other Visual Disturbances, Other Past Patient History - Past Medical History & Family History Past Medical History?: Yes - Past Social History Smoking Status: Never Smoked - CARDIAC Hx Hypertension: Yes - PULMONARY Hx Respiratory Disorders: No - NEUROLOGICAL Hx Migraine: Yes - HEENT Hx HEENT Problems: No - RENAL Hx Chronic Kidney Disease: No - ENDOCRINE/METABOLIC Hx Endocrine Disorders: No - HEMATOLOGICAL/ONCOLOGICAL Hx Blood Disorders: No - INTEGUMENTARY Hx Dermatological Problems: No - MUSCULOSKELETAL/RHEUMATOLOGICAL Hx Arthritis: Yes - GASTROINTESTINAL Hx Gastrointestinal Disorders: Yes - GENITOURINARY/GYNECOLOGICAL Hx Genitourinary Disorders: No - PSYCHIATRIC Hx Substance Use: No - SURGICAL HISTORY Hx Section: Yes - ANESTHESIA Hx Anesthesia: Yes Hx Anesthesia Reactions: No Meds Allergies/Adverse Reactions: Allergies Allergy/AdvReac Type Severity Reaction Status Date / Time Penicillins Allergy ANAPHYLAXIS Verified 02/03/18 10:31 - Medications Medications: Current Medications Albuterol/Ipratropium (Duoneb 3 Mg/0.5 Mg (3 Ml) Ud) 3 ml INH RQ6 PRN PRN Reason: Shortness of Breath Enoxaparin Sodium (Lovenox) 40 mg SC BID [facility] Famotidine (Pepcid) 20 mg IVP DAILY [facility] Last Admin: 02/03/18 10:45 Dose: 20 mg Hydrochlorothiazide (Hydrodiuril) 25 mg PO DAILY [facility] Ciprofloxacin (Cipro 400mg/200ml Dsw) 400 mg in 200 mls @ 133 mls/hr IVPB Q12 GARRETT PRN Reason: Protocol Last Admin: 02/03/18 21:00 Dose: 133 mls/hr Metronidazole (Flagyl) 500 mg in 100 mls @ 100 mls/hr IVPB Q8 GARRETT PRN Reason: Protocol Last Admin: 02/04/18 05:07 Dose: 100 mls/hr Lisinopril (Zestril) 20 mg PO DAILY [facility] Morphine Sulfate (Morphine) 2 mg IVP Q4 PRN PRN Reason: Pain, moderate (4-7) Last Admin: 02/04/18 03:21 Dose: 2 mg Ondansetron HCl (Zofran Inj) 4 mg IVP Q6H PRN PRN Reason: Nausea/Vomiting Physical Exam - Constitutional Appears: Non-toxic, No Acute Distress - Head Exam Head Exam: NORMAL INSPECTION - Eye Exam Eye Exam: EOMI, Normal appearance - ENT Exam ENT Exam: Mucous Membranes Moist - Respiratory Exam Respiratory Exam: Clear to Auscultation Bilateral - Cardiovascular Exam Cardiovascular Exam: +S1, +S2 - GI/Abdominal Exam GI & Abdominal Exam: Normal Bowel Sounds, Soft Additional comments: obese, mild tenderness to palpation at surgical site no palpable hepato/splenomegaly - Extremities Exam Extremities exam: Positive for: normal inspection - Neurological Exam Neurological exam: Alert, CN II-XII Intact, Oriented x3, Reflexes Normal - Psychiatric Exam Psychiatric exam: Normal Affect, Normal Mood - Skin Skin Exam: Dry, Intact, Normal Color, Warm Results - Vital Signs Recent Vital Signs: Last Vital Signs Temp 98.6 F 02/03/18 23:30 Pulse 67 02/03/18 23:30 Resp 20 02/03/18 23:30 BP 115/69 02/03/18 23:30 Pulse Ox 100 02/03/18 23:30 - Labs Result Diagrams: 02/03/18 04:16 02/03/18 04:16 Labs: Laboratory Results - last 24 hr 02/03/18 02/03/18 02/03/18 04:16 07:48 09:45 PT 11.1 INR 1.0 APTT 31 Puncture Site pCO2 pO2 HCO3 ABG pH ABG Total CO2 ABG O2 Saturation ABG Base Excess ABG Hemoglobin ABG Carboxyhemoglobin POC ABG HHb (Measured) ABG Methemoglobin Mann Test Hgb O2 Saturation Crit Value Called To Crit Value Called By Crit Value Read Back Sodium 139 Potassium 3.9 Chloride 100 Carbon Dioxide 26 Anion Gap 17 BUN 15 Creatinine 0.9 Est GFR ( Amer) > 60 Est GFR (Non-Af Amer) > 60 Random Glucose 125 H Calcium 9.4 Total Bilirubin 0.6 AST 21 ALT 23 Alkaline Phosphatase 109 Total Protein 7.3 Albumin 4.3 Globulin 3.0 Albumin/Globulin Ratio 1.4 Triglycerides 75 Cholesterol 195 LDL Cholesterol Direct 106 HDL Cholesterol 52 Lipase 192 Urine Color Yellow Urine Clarity Clear Urine pH 5.0 Ur Specific [place] 1.021 Urine Protein Negative Urine Glucose (UA) Normal Urine Ketones Negative Urine Blood Trace Urine Nitrate Negative Urine Bilirubin Negative Urine Urobilinogen Normal Ur Leukocyte Esterase Trace Urine WBC (Auto) 4 Urine RBC (Auto) < 1 Ur Squamous Epith Cells < 1 Blood Type Antibody Screen 02/03/18 02/03/18 09:45 11:55 PT INR APTT Puncture Site L/b pCO2 45 pO2 71 L HCO3 26.2 ABG pH 7.39 ABG Total CO2 28.6 H ABG O2 Saturation 96.8 ABG Base Excess 1.8 ABG Hemoglobin 12.9 ABG Carboxyhemoglobin 2.1 H POC ABG HHb (Measured) 3.1 ABG Methemoglobin 1.7 Mann Test Pos Hgb O2 Saturation 93.1 L Crit Value Called To Pravin gibbs Crit Value Called By Jeanette Crit Value Read Back Y Sodium Potassium Chloride Carbon Dioxide Anion Gap BUN Creatinine Est GFR ( Amer) Est GFR (Non-Af Amer) Random Glucose Calcium Total Bilirubin AST ALT Alkaline Phosphatase Total Protein Albumin Globulin Albumin/Globulin Ratio Triglycerides Cholesterol LDL Cholesterol Direct HDL Cholesterol Lipase Urine Color Urine Clarity Urine pH Ur Specific [place] Urine Protein Urine Glucose (UA) Urine Ketones Urine Blood Urine Nitrate Urine Bilirubin Urine Urobilinogen Ur Leukocyte Esterase Urine WBC (Auto) Urine RBC (Auto) Ur Squamous Epith Cells Blood Type O POSITIVE Antibody Screen Negative Assessment & Plan - Assessment and Plan (Free Text) Assessment: Obesity (BMI 47) HTN Abdominal pain - acute cholecystitis, POD #1 lap cholecystectomy Abdominal US reviewed by me showing stone at GB neck, normal caliber CBD Plan: - Liquid diet as tolerated - Continue with antibiotic therapy - Pain control - Continue to monitor LFTs - Follow up surgical recommendations following post operative course - No planned GI interventions will sign off case. Patient would benefit from elective age appropriate screening colonoscopy following resolution of acute symptoms.
[2018-02-04 07:27] LABS: BASO % 0.2 % (0.0-2.0); HEMOGLOBIN 13.3 g/dL (11.0-16.0); LYMPH # 1.5 K/uL (1.0-4.3); LYMPH % 13.2 % (20.0-40.0); MEAN CORPUSCULAR HEMOGLOBIN 28.2 pg (27.0-31.0); MEAN CORPUSCULAR HGB CONC 33.2 g/dL (33.0-37.0); MEAN PLATELET VOLUME 10.6 fL (7.2-11.7); MONO # 0.8 K/uL (0.0-0.8); MONO % 7.1 % (0.0-10.0); NEUT % 79.5 % (50.0-75.0); RBC 4.71 Mil/uL (3.80-5.20); RED CELL DISTRIBUTION WIDTH 14.8 % (11.5-14.5); WHITE BLOOD COUNT 11.3 K/uL (4.8-10.8)
[2018-02-04 07:57] LABS: ALB/GLOB RATIO 1.2 (1.0-2.1); ALBUMIN 3.5 g/dL (3.5-5.0); ALT/SGPT 30 U/L (9-52); AST/SGOT 32 U/L (14-36); BLOOD UREA NITROGEN 12 mg/dL (7-17); CALCIUM 8.7 mg/dl (8.6-10.4); GFR AFRICAN-AMERICAN > 60; GFR NON-AFRICAN AMERICAN > 60
[2018-02-04 08:39] VITALS: BP 131/72; PULSE 60; TEMP 98.3
[2018-02-04] MEDS ORDERED: Oxycodone/Acetaminophen 5/325 mg Tab PO PRN ×2 (08:58)
--- NOTE | 2018-02-04 09:12 | CP.PCM.PN ---
Subjective - Date & Time of Evaluation Date of Evaluation: 02/04/18 Time of Evaluation: 09:03 - Subjective Subjective: General Surgery Progress Note for Dr. Noguera 62F seen and evaluated this morning. No acute events overnight. C/o abdominal pain near incision sites. Dressings c/d/i. Denies BM or passing flatus. No f/c, n/v/d, SOB, or CP. Tolerating liquid diet. Objective - Vital Signs/Intake and Output Vital Signs (last 24 hours): Temp Pulse Resp BP Pulse Ox 98.3 F 60 20 131/72 100 02/04/18 08:02 02/04/18 08:02 02/04/18 08:02 02/04/18 08:02 02/04/18 08:02 Intake and Output: 02/04/18 02/04/18 06:59 18:59 Intake Total 400 Balance 400 - Medications Medications: Current Medications Albuterol/Ipratropium (Duoneb 3 Mg/0.5 Mg (3 Ml) Ud) 3 ml INH RQ6 PRN PRN Reason: Shortness of Breath Enoxaparin Sodium (Lovenox) 40 mg SC BID [facility] Famotidine (Pepcid) 20 mg IVP DAILY [facility] Last Admin: 02/03/18 10:45 Dose: 20 mg Hydrochlorothiazide (Hydrodiuril) 25 mg PO DAILY [facility] Ciprofloxacin (Cipro 400mg/200ml Dsw) 400 mg in 200 mls @ 133 mls/hr IVPB Q12 [facility] PRN Reason: Protocol Last Admin: 02/03/18 21:00 Dose: 133 mls/hr Metronidazole (Flagyl) 500 mg in 100 mls @ 100 mls/hr IVPB Q8 [facility] PRN Reason: Protocol Last Admin: 02/04/18 05:07 Dose: 100 mls/hr Lisinopril (Zestril) 20 mg PO DAILY [facility] Ondansetron HCl (Zofran Inj) 4 mg IVP Q6H PRN PRN Reason: Nausea/Vomiting Oxycodone/Acetaminophen (Percocet 5/325 Mg Tab) 1 tab PO Q4H PRN PRN Reason: Pain, moderate (4-7) Stop: 02/07/18 08:59 Oxycodone/Acetaminophen (Percocet 5/325 Mg Tab) 2 tab PO Q4H PRN PRN Reason: Pain, severe (8-10) Stop: 02/07/18 08:59 - Labs Labs: 02/04/18 07:15 02/04/18 07:15 PT 11.1 SECONDS (9.7-12.2) 02/03/18 09:45 INR 1.0 02/03/18 09:45 APTT 31 SECONDS (21-34) 02/03/18 09:45 - Constitutional Appears: Well, Non-toxic, No Acute Distress - Head Exam Head Exam: ATRAUMATIC, NORMAL INSPECTION, NORMOCEPHALIC - Eye Exam Eye Exam: EOMI, Normal appearance - ENT Exam ENT Exam: Mucous Membranes Moist, Normal Exam - Respiratory Exam Respiratory Exam: Clear to Ausculation Bilateral, NORMAL BREATHING PATTERN - Cardiovascular Exam Cardiovascular Exam: REGULAR RHYTHM, +S1, +S2. absent: Murmur - GI/Abdominal Exam GI & Abdominal Exam: Soft, Tenderness, Normal Bowel Sounds. absent: Distended, Firm, Guarding, Rigid, Rebound - Rectal Exam Rectal Exam: Deferred - Neurological Exam Neurological Exam: Alert, Awake, Oriented x3 - Psychiatric Exam Psychiatric exam: Normal Affect, Normal Mood - Skin Skin Exam: Dry, Intact, Normal Color, Warm Assessment and Plan - Assessment and Plan (Free Text) Assessment: 62F s/p lap charles POD1 Plan: advance diet as tolerated c/w IV Abx c/w pain management encourage ambulation and IS use monitor AM labs DVT ppx further recs per Dr. Poornima Melara PGY1
[2018-02-04] MEDS: Ciprofloxacin 400mg/200ml D5W 400 MG/200 ML BAG IVPB SCH (09:24)
--- NOTE | 2018-02-04 09:54 | CP.PCM.PN ---
Subjective - Date & Time of Evaluation Date of Evaluation: 02/04/18 Time of Evaluation: 09:53 - Subjective Subjective: Internal Medicine Progress Note - Hospitalist Service Patient seen and examined at bedside. Per nursing no acute events overnight. Patient is doing well, pain is controlled. She is OOB to chair. Denies passing flatus or having a BM. She is tolerating clear liquids. Denies headaches, dizziness, cp, palpitations, sob, urinary symptoms. Objective - Vital Signs/Intake and Output Vital Signs (last 24 hours): Temp Pulse Resp BP Pulse Ox 98.3 F 60 20 131/72 100 02/04/18 08:02 02/04/18 08:02 02/04/18 08:02 02/04/18 08:02 02/04/18 08:02 Intake and Output: 02/04/18 02/04/18 06:59 18:59 Intake Total 400 Balance 400 - Medications Medications: Current Medications Albuterol/Ipratropium (Duoneb 3 Mg/0.5 Mg (3 Ml) Ud) 3 ml INH RQ6 PRN PRN Reason: Shortness of Breath Enoxaparin Sodium (Lovenox) 40 mg SC BID [facility] Last Admin: 02/04/18 09:23 Dose: 40 mg Famotidine (Pepcid) 20 mg IVP DAILY [facility] Last Admin: 02/04/18 09:23 Dose: 20 mg Hydrochlorothiazide (Hydrodiuril) 25 mg PO DAILY [facility] Last Admin: 02/04/18 09:23 Dose: 25 mg Ciprofloxacin (Cipro 400mg/200ml Dsw) 400 mg in 200 mls @ 133 mls/hr IVPB Q12 [facility] PRN Reason: Protocol Last Admin: 02/04/18 09:24 Dose: 133 mls/hr Metronidazole (Flagyl) 500 mg in 100 mls @ 100 mls/hr IVPB Q8 [facility] PRN Reason: Protocol Last Admin: 02/04/18 05:07 Dose: 100 mls/hr Lisinopril (Zestril) 20 mg PO DAILY [facility] Last Admin: 02/04/18 09:23 Dose: 20 mg Ondansetron HCl (Zofran Inj) 4 mg IVP Q6H PRN PRN Reason: Nausea/Vomiting Oxycodone/Acetaminophen (Percocet 5/325 Mg Tab) 1 tab PO Q4H PRN PRN Reason: Pain, moderate (4-7) Stop: 02/07/18 08:59 Oxycodone/Acetaminophen (Percocet 5/325 Mg Tab) 2 tab PO Q4H PRN PRN Reason: Pain, severe (8-10) Stop: 02/07/18 08:59 - Labs Labs: 02/04/18 07:15 02/04/18 07:15 PT 11.1 SECONDS (9.7-12.2) 02/03/18 09:45 INR 1.0 02/03/18 09:45 APTT 31 SECONDS (21-34) 02/03/18 09:45 - Additional Findings Additional findings: - Constitutional Appears: Well, Non-toxic, No Acute Distress - Head Exam Head Exam: ATRAUMATIC, NORMAL INSPECTION, NORMOCEPHALIC - Eye Exam Eye Exam: EOMI, Normal appearance - ENT Exam ENT Exam: Mucous Membranes Moist, Normal Exam - Respiratory Exam Respiratory Exam: Clear to Ausculation Bilateral, NORMAL BREATHING PATTERN - Cardiovascular Exam Cardiovascular Exam: REGULAR RHYTHM, +S1, +S2. absent: Murmur - GI/Abdominal Exam GI & Abdominal Exam: Soft, Tenderness, Normal Bowel Sounds. absent: Distended, Firm, Guarding, Rigid, Rebound - Rectal Exam Rectal Exam: Deferred - Neurological Exam Neurological Exam: Alert, Awake, Oriented x3 - Psychiatric Exam Psychiatric exam: Normal Affect, Normal Mood - Skin Skin Exam: Dry, Intact, Normal Color, Warm Assessment and Plan - Assessment and Plan (Free Text) Assessment: A/P: Patient is a 62 year old female with past medical history of Hypertension, Sleep apnea, Obesity who presented to the ED for severe RUQ pain that started last night. Abdominal pain secondary to Acute Cholecystitis -Stable, afebrile -Patient is s/p Laparoscopic Cholecystectomy POD#1 -Activity: OOB to chair -Advance diet as tolerated -Encourage Incentive Spirometer Use Q1H -Pain control: Percocet 1 tab PO Q4H prn moderate pain, Percocet 2 tabs PO Q4H prn severe pain -Continue Antibiotics: Ciprofloxacin 400mg Q12H (02/03/18), Flagyl 500mg Q8H () -General surgery on consult, help appreciated -GI on consult, Dr Pyle, help appreciated -CXR: poor inspiratory effort, mild venous congestion, right hilar prominence, tortuous ectatic aorta (see full report) -Repeat CXR showed Mild venous congestion, mild pathcy increased markings at lung bases, right hilar prominence, tortuous ectatic aorta, mild cardiomegaly ( see full report) -EKG showing NSR 62 bpm, no ST changes -Abdominal US showed there is 1.7 x 1.1 x 1.6 cm gallstone in the gallbladder neck with 3 mm gallbladder wall, suspicious for acute obstructive cholecystitis , there was right upper quadrant tenderness during the sonographic examination, Normal common bile duct measuring 6mm for patient's age -Patient is a medium risk individual with her comoborbities; cardiac risk index for non-cardiac surgery is Class I 6% (Detsky score) and estimated risk probability for perioperative myocardial infarction or cardiac arrest is 0.13% ( Sanchez score) Leukocytosis -WBC 11.3 today, likely reactive from recent surgery -Will continue to monitor Hypertension -Patient states that she is complaint with her medications and her BPs are controlled -Takes Lisinopril/HCTZ 20-25mg PO daily -Will hold Aspirin 81mg PO daily at this time, can resume 3-4 days post op -Currently Normatensive, will continue to monitor vital signs -Patient had echo and stress test in September 2017 that was reportedly normal per the daughter -Dr Benito office is closed today, unable to access reports -Repeat Echo ordered Possible allergic reaction -Patient reports having Penicillin allergy after receiving Zosyn in the ED, -Benadryl 25mg IVP, Solumedrol 40mg IVP and Pepcid 20mg IVP given -Will continue to monitor Sleep apnea/Obesity -Patient has had two sleep studies done in the past -Sleeps with CPAP at night, daughter to provide settings -Duonebs Q6H prn shortness of breath -Baseline ABG reviewed -BMI 46.9 GI/DVT ppx: -Pepcid 20mg IVP daily -Lovenox 40mg SC BID -PT eval ordered Plan discussed with Dr Ari Mo DO PGY-2
[2018-02-04] MEDS ORDERED: Enoxaparin 40 mg Syringe SC SCH (10:00)
--- NOTE | 2018-02-04 15:02 | CP.PCM.DIS ---
<Rosenda Mo - Last Filed: 02/04/18 15:34> Provider - Provider Date of Admission: 02/03/18 09:37 Attending physician: Mary Carmen Lucia DO Consults: General surgery: Poornima GI: Edenilson Time Spent in preparation of Discharge (in minutes): 32 Hospital Course - Lab Results Lab Results: Most Recent Lab Values WBC 11.3 K/uL (4.8-10.8) H 02/04/18 07:15 RBC 4.71 Mil/uL (3.80-5.20) 02/04/18 07:15 Hgb 13.3 g/dL (11.0-16.0) 02/04/18 07:15 Hct 40.0 % (34.0-47.0) 02/04/18 07:15 MCV 85.0 fL (81.0-99.0) 02/04/18 07:15 MCH 28.2 pg (27.0-31.0) 02/04/18 07:15 MCHC 33.2 g/dL (33.0-37.0) 02/04/18 07:15 RDW 14.8 % (11.5-14.5) H 02/04/18 07:15 Plt Count 163 K/uL (130-400) 02/04/18 07:15 MPV 10.6 fL (7.2-11.7) 02/04/18 07:15 Neut % (Auto) 79.5 % (50.0-75.0) H 02/04/18 07:15 Lymph % (Auto) 13.2 % (20.0-40.0) L 02/04/18 07:15 Motley % (Auto) 7.1 % (0.0-10.0) 02/04/18 07:15 Eos % (Auto) 0.0 % (0.0-4.0) 02/04/18 07:15 Baso % (Auto) 0.2 % (0.0-2.0) 02/04/18 07:15 Neut # (Auto) 9.0 K/uL (1.8-7.0) H 02/04/18 07:15 Lymph # (Auto) 1.5 K/uL (1.0-4.3) 02/04/18 07:15 Motley # (Auto) 0.8 K/uL (0.0-0.8) 02/04/18 07:15 Eos # (Auto) 0.0 K/uL (0.0-0.7) 02/04/18 07:15 Baso # (Auto) 0.0 K/uL (0.0-0.2) 02/04/18 07:15 PT 11.1 SECONDS (9.7-12.2) 02/03/18 09:45 INR 1.0 02/03/18 09:45 APTT 31 SECONDS (21-34) 02/03/18 09:45 Puncture Site L/b 02/03/18 11:55 pCO2 45 mm/Hg (35-45) 02/03/18 11:55 pO2 71 mm/Hg (80-100) L 02/03/18 11:55 HCO3 26.2 mmol/L (21-28) 02/03/18 11:55 ABG pH 7.39 (7.35-7.45) 02/03/18 11:55 ABG Total CO2 28.6 mmol/L (22-28) H 02/03/18 11:55 ABG O2 Saturation 96.8 % (95-98) 02/03/18 11:55 ABG Base Excess 1.8 mmol/L (-2.0-3.0) 02/03/18 11:55 ABG Hemoglobin 12.9 g/dL (11.7-17.4) 02/03/18 11:55 ABG Carboxyhemoglobin 2.1 % (0.5-1.5) H 02/03/18 11:55 POC ABG HHb (Measured) 3.1 % (0.0-5.0) 02/03/18 11:55 ABG Methemoglobin 1.7 % (0.0-3.0) 02/03/18 11:55 Mann Test Pos 02/03/18 11:55 Hgb O2 Saturation 93.1 % (95.0-98.0) L 02/03/18 11:55 Crit Value Called To Pravin gibbs 02/03/18 11:55 Crit Value Called By Jeanette 02/03/18 11:55 Crit Value Read Back Y 02/03/18 11:55 Sodium 140 mmol/L (132-148) 02/04/18 07:15 Potassium 4.0 mmol/L (3.6-5.2) 02/04/18 07:15 Chloride 104 mmol/L (98-107) 02/04/18 07:15 Carbon Dioxide 28 mmol/L (22-30) 02/04/18 07:15 Anion Gap 11 (10-20) 02/04/18 07:15 BUN 12 mg/dL (7-17) 02/04/18 07:15 Creatinine 0.8 mg/dL (0.7-1.2) 02/04/18 07:15 Est GFR ( Amer) > 60 02/04/18 07:15 Est GFR (Non-Af Amer) > 60 02/04/18 07:15 Random Glucose 96 mg/dL (65-105) 02/04/18 07:15 Hemoglobin A1c 5.9 % (4.2-6.5) 02/03/18 10:47 Calcium 8.7 mg/dl (8.6-10.4) 02/04/18 07:15 Total Bilirubin 0.5 mg/dL (0.2-1.3) 02/04/18 07:15 AST 32 U/L (14-36) 02/04/18 07:15 ALT 30 U/L (9-52) 02/04/18 07:15 Alkaline Phosphatase 82 U/L (38-126) 02/04/18 07:15 Total Protein 6.4 g/dL (6.3-8.3) 02/04/18 07:15 Albumin 3.5 g/dL (3.5-5.0) 02/04/18 07:15 Globulin 2.9 gm/dL (2.2-3.9) 02/04/18 07:15 Albumin/Globulin Ratio 1.2 (1.0-2.1) 02/04/18 07:15 Triglycerides 75 mg/dL (0-149) 02/03/18 04:16 Cholesterol 195 mg/dL (0-199) 02/03/18 04:16 LDL Cholesterol Direct 106 mg/dL (0-129) 02/03/18 04:16 HDL Cholesterol 52 mg/dL (30-70) 02/03/18 04:16 Lipase 192 U/L (23-300) 02/03/18 04:16 Urine Color Yellow (YELLOW) 02/03/18 07:48 Urine Clarity Clear (Clear) 02/03/18 07:48 Urine pH 5.0 (5.0-8.0) 02/03/18 07:48 Ur Specific [place] 1.021 (1.003-1.030) 02/03/18 07:48 Urine Protein Negative mg/dL (NEGATIVE) 02/03/18 07:48 Urine Glucose (UA) Normal mg/dL (Normal) 02/03/18 07:48 Urine Ketones Negative mg/dL (NEGATIVE) 02/03/18 07:48 Urine Blood Trace (NEGATIVE) 02/03/18 07:48 Urine Nitrate Negative (NEGATIVE) 02/03/18 07:48 Urine Bilirubin Negative (NEGATIVE) 02/03/18 07:48 Urine Urobilinogen Normal mg/dL (0.2-1.0) 02/03/18 07:48 Ur Leukocyte Esterase Trace Jimena/uL (Negative) 02/03/18 07:48 Urine WBC (Auto) 4 /hpf (0-5) 02/03/18 07:48 Urine RBC (Auto) < 1 /hpf (0-3) 02/03/18 07:48 Ur Squamous Epith Cells < 1 /hpf (0-5) 02/03/18 07:48 Blood Type O POSITIVE 02/03/18 09:45 Antibody Screen Negative 02/03/18 09:45 - Hospital Course Hospital Course: HPI: Patient is a 62 year old female with past medical history Hypertension, sleep apnea on CPAP at night, obesity presented to the ED for severe abdominal pain. Patient's daughter is at the bedside providing some of the history. Patient states that she has been having intermittent abdominal pain that started 2-3 weeks ago. Last night after dinner she started experiencing severe abdominal pain in the RUQ. Pain started at approximately 8-9pm and is constant in nature. She took tylenol with no relief in symptoms. For dinner, she ate rice with baked chicken at approximately 7:30pm last night. Patient still with abdominal pain at the time of interview. Denies fevers, chills, headaches, dizziness, cp, palpitations, sob, urinary symptoms, changes in bowel habits. 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 States that her last echo and stress test were in September 2017, which were normal. Patient last took her medications yesterday. Hospital Course: Patient was admitted for Acute Cholecystitis. Abdominal US there is 1.7 x 1.1 x 1.6 cm gallstone in the gallbladder neck with 3 mm gallbladder wall, suspicious for acute obstructive cholecystitis, there was right upper quadrant tenderness during the sonographic examination, Normal common bile duct measuring 6mm for patient's age. Genera surgery and GI were consulted and following. Patient was medium risk individual with her comoborbities; cardiac risk index for non-cardiac surgery is Class I 6% (Detsky score) and estimated risk probability for perioperative myocardial infarction or cardiac arrest is 0.13% (Sanchez score). While in the ED patient recieved Zosyn. Patient later states that she had a penicillin allergy - anaphylaxis. Zosyn was discontinued and patient was given Benadryl, Solumedrol and Pepcid. Patient was taken to the OR on 02/03/18 for Laparoscopic cholecystectomy. Patient tolerated the procedure well. Post-operative course was uncomplicated. Patient was cleared for discharge home from General surgery. On day of discharge patient was doing well, pain was controlled. She was ambulating and tolerating diet. Patient instructed to follow up with Dr Noguera in the office within 2 weeks. Patient is also to follow up with Dr Rodas within 1 week. Instructed that she can take Tylenol 500mg Q6H OTC as needed for pain. All questions and concerns were addressed. Daughter and were at the bedside. Discharge Medications: -Please continue Lisinopril/HCTZ 20-25mg PO daily as prescribed previously -Patient to resume ASA 81mg 02/06/18 -Ciprofloxacin 500mg PO Q12H x 5 days (to be taken at 8am and 8pm) -Flagyl 500mg PO TID x 5 days (to be taken at 8am, 2pm, and 8pm Discharge Diagnosis: Acute Cholecystitis S/P Laparoscopic Cholecystectomy Discharge Exam - Additional Findings Additional findings: - Constitutional Appears: Well, Non-toxic, No Acute Distress - Head Exam Head Exam: ATRAUMATIC, NORMAL INSPECTION, NORMOCEPHALIC - Eye Exam Eye Exam: EOMI, Normal appearance - ENT Exam ENT Exam: Mucous Membranes Moist, Normal Exam - Respiratory Exam Respiratory Exam: Clear to Ausculation Bilateral, NORMAL BREATHING PATTERN - Cardiovascular Exam Cardiovascular Exam: REGULAR RHYTHM, +S1, +S2. absent: Murmur - GI/Abdominal Exam GI & Abdominal Exam: Soft, Tenderness, Incision c/d/i with steristrips absent: Distended, Firm, Guarding, Rigid, Rebound - Rectal Exam Rectal Exam: Deferred - Neurological Exam Neurological Exam: Alert, Awake, Oriented x3 - Psychiatric Exam Psychiatric exam: Normal Affect, Normal Mood - Skin Skin Exam: Dry, Intact, Normal Color, Warm Discharge Plan - Discharge Medications Prescriptions: Ciprofloxacin HCl [Cipro] 500 mg PO Q12H #10 tablet metroNIDAZOLE [Flagyl] 500 mg PO TID #15 tab - Follow Up Plan Condition: STABLE Disposition: HOME/ ROUTINE Instructions: Cholecystitis (DC), Cholecystitis (GEN) Additional Instructions: 1. Patient is clear for discharge home 2. Please continue medications as prescribed 3. Please continue Ciprofloxacin 500mg PO Q12H (be careful with this medication as it can cause tendonitis and tendon rupture; please be careful going up steps , no heavy lifting and no exercising) and Flagyl 500mg PO TID x 5 days 4. Please follow up with Dr Fernandez within 1 week of discharge, follow up with Dr Noguera within 2 weeks 5. For pain you can take OTC Tylenol 500mg q6h prn starting 9pm tonight 6. If having any worsening of symptoms, return to nearest ED Referrals: Bridgett Fernandez MD [Staff Provider] - Fredy Noguera MD [Staff Provider] - <Ari Abrams - Last Filed: 02/04/18 20:38> Provider - Provider Date of Admission: 02/03/18 09:37 Attending physician: Mary Carmen Lucia DO Time Spent in preparation of Discharge (in minutes): 40 Hospital Course - Lab Results Lab Results: Most Recent Lab Values WBC 11.3 K/uL (4.8-10.8) H 02/04/18 07:15 RBC 4.71 Mil/uL (3.80-5.20) 02/04/18 07:15 Hgb 13.3 g/dL (11.0-16.0) 02/04/18 07:15 Hct 40.0 % (34.0-47.0) 02/04/18 07:15 MCV 85.0 fL (81.0-99.0) 02/04/18 07:15 MCH 28.2 pg (27.0-31.0) 02/04/18 07:15 MCHC 33.2 g/dL (33.0-37.0) 02/04/18 07:15 RDW 14.8 % (11.5-14.5) H 02/04/18 07:15 Plt Count 163 K/uL (130-400) 02/04/18 07:15 MPV 10.6 fL (7.2-11.7) 02/04/18 07:15 Neut % (Auto) 79.5 % (50.0-75.0) H 02/04/18 07:15 Lymph % (Auto) 13.2 % (20.0-40.0) L 02/04/18 07:15 Motley % (Auto) 7.1 % (0.0-10.0) 02/04/18 07:15 Eos % (Auto) 0.0 % (0.0-4.0) 02/04/18 07:15 Baso % (Auto) 0.2 % (0.0-2.0) 02/04/18 07:15 Neut # (Auto) 9.0 K/uL (1.8-7.0) H 02/04/18 07:15 Lymph # (Auto) 1.5 K/uL (1.0-4.3) 02/04/18 07:15 [place] # (Auto) 0.8 K/uL (0.0-0.8) 02/04/18 07:15 Eos # (Auto) 0.0 K/uL (0.0-0.7) 02/04/18 07:15 Baso # (Auto) 0.0 K/uL (0.0-0.2) 02/04/18 07:15 PT 11.1 SECONDS (9.7-12.2) 02/03/18 09:45 INR 1.0 02/03/18 09:45 APTT 31 SECONDS (21-34) 02/03/18 09:45 Puncture Site L/b 02/03/18 11:55 pCO2 45 mm/Hg (35-45) 02/03/18 11:55 pO2 71 mm/Hg (80-100) L 02/03/18 11:55 HCO3 26.2 mmol/L (21-28) 02/03/18 11:55 ABG pH 7.39 (7.35-7.45) 02/03/18 11:55 ABG Total CO2 28.6 mmol/L (22-28) H 02/03/18 11:55 ABG O2 Saturation 96.8 % (95-98) 02/03/18 11:55 ABG Base Excess 1.8 mmol/L (-2.0-3.0) 02/03/18 11:55 ABG Hemoglobin 12.9 g/dL (11.7-17.4) 02/03/18 11:55 ABG Carboxyhemoglobin 2.1 % (0.5-1.5) H 02/03/18 11:55 POC ABG HHb (Measured) 3.1 % (0.0-5.0) 02/03/18 11:55 ABG Methemoglobin 1.7 % (0.0-3.0) 02/03/18 11:55 Mann Test Pos 02/03/18 11:55 Hgb O2 Saturation 93.1 % (95.0-98.0) L 02/03/18 11:55 Crit Value Called To Pravin gibbs 02/03/18 11:55 Crit Value Called By Jeanette 02/03/18 11:55 Crit Value Read Back Y 02/03/18 11:55 Sodium 140 mmol/L (132-148) 02/04/18 07:15 Potassium 4.0 mmol/L (3.6-5.2) 02/04/18 07:15 Chloride 104 mmol/L (98-107) 02/04/18 07:15 Carbon Dioxide 28 mmol/L (22-30) 02/04/18 07:15 Anion Gap 11 (10-20) 02/04/18 07:15 BUN 12 mg/dL (7-17) 02/04/18 07:15 Creatinine 0.8 mg/dL (0.7-1.2) 02/04/18 07:15 Est GFR ( Amer) > 60 02/04/18 07:15 Est GFR (Non-Af Amer) > 60 02/04/18 07:15 Random Glucose 96 mg/dL (65-105) 02/04/18 07:15 Hemoglobin A1c 5.9 % (4.2-6.5) 02/03/18 10:47 Calcium 8.7 mg/dl (8.6-10.4) 02/04/18 07:15 Total Bilirubin 0.5 mg/dL (0.2-1.3) 02/04/18 07:15 AST 32 U/L (14-36) 02/04/18 07:15 ALT 30 U/L (9-52) 02/04/18 07:15 Alkaline Phosphatase 82 U/L (38-126) 02/04/18 07:15 Total Protein 6.4 g/dL (6.3-8.3) 02/04/18 07:15 Albumin 3.5 g/dL (3.5-5.0) 02/04/18 07:15 Globulin 2.9 gm/dL (2.2-3.9) 02/04/18 07:15 Albumin/Globulin Ratio 1.2 (1.0-2.1) 02/04/18 07:15 Triglycerides 75 mg/dL (0-149) 02/03/18 04:16 Cholesterol 195 mg/dL (0-199) 02/03/18 04:16 LDL Cholesterol Direct 106 mg/dL (0-129) 02/03/18 04:16 HDL Cholesterol 52 mg/dL (30-70) 02/03/18 04:16 Lipase 192 U/L (23-300) 02/03/18 04:16 Urine Color Yellow (YELLOW) 02/03/18 07:48 Urine Clarity Clear (Clear) 02/03/18 07:48 Urine pH 5.0 (5.0-8.0) 02/03/18 07:48 Ur Specific [place] 1.021 (1.003-1.030) 02/03/18 07:48 Urine Protein Negative mg/dL (NEGATIVE) 02/03/18 07:48 Urine Glucose (UA) Normal mg/dL (Normal) 02/03/18 07:48 Urine Ketones Negative mg/dL (NEGATIVE) 02/03/18 07:48 Urine Blood Trace (NEGATIVE) 02/03/18 07:48 Urine Nitrate Negative (NEGATIVE) 02/03/18 07:48 Urine Bilirubin Negative (NEGATIVE) 02/03/18 07:48 Urine Urobilinogen Normal mg/dL (0.2-1.0) 02/03/18 07:48 Ur Leukocyte Esterase Trace Jimena/uL (Negative) 02/03/18 07:48 Urine WBC (Auto) 4 /hpf (0-5) 02/03/18 07:48 Urine RBC (Auto) < 1 /hpf (0-3) 02/03/18 07:48 Ur Squamous Epith Cells < 1 /hpf (0-5) 02/03/18 07:48 Blood Type O POSITIVE 02/03/18 09:45 Antibody Screen Negative 02/03/18 09:45 Attending/Attestation - Attestation I have personally seen and examined this patient.: Yes I have fully participated in the care of the patient.: Yes I have reviewed all pertinent clinical information, including history, physical exam and plan: Yes Notes (Text): 02/04/18 20:37 Patient was seen and examined shortly after resident. Spoke with surgery Dr. Noguera and patient cleared from his standpoint. Discharge instructions were gone over with the resident as well as the patient' s daughter who was at bedside at the time of exam. Ari Abrams D.O.
--- NOTE | 2018-02-06 11:42 | CARD ---
APPROVED REPORT Date of service: 02/03/2018 EKG Measurement Heart [id number] <Conclusion> Normal sinus rhythm Normal ECG
== END 2018-02-04 15:53 | disposition home or self-care (01) | DRG 418 ==
LOC: C.ER 02:58 → C.9E 09:37 → C.6T 10:52
PROVIDERS: ADMIT Hospitalist; ATTEND Hospitalist
PROC: 0FT44ZZ Resection of Gallbladder, Percutaneous Endoscopic Approach (ICD-10-PCS; principal; 2018-02-03 16:30)
DX: K80.12 Calculus of gallbladder with acute and chronic cholecystitis without obstruction (principal); Z68.42 Body mass index [BMI] 45.0-49.9, adult; E66.01 Morbid (severe) obesity due to excess calories; G47.30 Sleep apnea, unspecified; I10 Essential (primary) hypertension